=== PATIENT | female | born 1990 | race Caucasian/White ===

== ENCOUNTER 2019-02-01 10:03 | Day surgery (SDC) | payer MEDICAID, OTHER ==
[~2019-02-01] VITALS: Ht 160 cm; Wt 133.0 kg
[2019-02-01] VITALS (11 sets, daily range): BP systolic 114–183; BP diastolic 61–129; PULSE 80–102; RESP 15–18; Ht 160 cm; Wt 133.0 kg
[~2019-02-01 10:03] MED LIST: CEFAZOLIN 2 GM/50 ML (PMX) 50 ML IVPB ONE; SOD CHLORIDE 0.9% 1,000 ML IV ONE; VIC PO
[2019-02-01] MEDS ORDERED: DIPHENHYDRAMINE 50 MG INJ IV PRN (12:30)
[2019-02-01] MEDS ORDERED: hydrALAzine 20 MG INJ IV PRN (12:30)
[2019-02-01] MEDS ORDERED: OXYCODONE/ACETAMINOPHEN (5/325) TAB PO PRN (12:30)
[2019-02-01] MEDS ORDERED: MEPERIDINE 25 MG INJ IV PRN (12:30)
[2019-02-01] MEDS ORDERED: EPHEDrine 25 MG/5 ML SYG IV PRN (12:30)
[2019-02-01] MEDS ORDERED: HYDROmorphONE 1 MG/5 ML IV SYRINGE IV PRN ×3 (12:30)
[2019-02-01] MEDS ORDERED: FENTAnyl 50 MCG/ML VIAL IV PRN ×3 (12:30)
[2019-02-01] MEDS ORDERED: METOCLOPRAMIDE 10 MG INJ IV PRN (12:30)
[2019-02-01] MEDS ORDERED: LABETALOL HCL 20MG INJ IV PRN (12:30)
[2019-02-01] MEDS ORDERED: ONDANSETRON 4 MG INJ IV PRN (12:30)
[2019-02-01] MEDS ORDERED: PROPOFOL 40 ML ONE (12:48)
[2019-02-01] MEDS ORDERED: CEFAZOLIN 1 GM INJ ONE (12:48)
[2019-02-01] MEDS ORDERED: DESFLURANE 15 MIN ONE (12:48)
[2019-02-01] MEDS ORDERED: ROCURONIUM 50 MG INJ ONE (12:48)
[2019-02-01] MEDS ORDERED: FENTAnyl 50 MCG/ML VIAL ONE ×2 (12:49→13:30)
[2019-02-01] MEDS ORDERED: MIDAZOLAM 1 MG/ML 2 ML INJ ONE ×2 (12:49→13:38)
[2019-02-01] MEDS ORDERED: ROPIVACAINE 0.2% 20 ML VIAL ONE (12:49)
[2019-02-01] MEDS ORDERED: ROPIVACAINE 0.5 % 30 ML VIAL ONE (12:49)
[2019-02-01] MEDS ORDERED: BUPIVACAINE 0.5% (SDV) 30 ML INJ ONE (13:52)
[2019-02-01] MEDS ORDERED: DEXAMETHASONE 4 MG/ML 5 ML INJ ONE (14:00)
[2019-02-01] MEDS ORDERED: HYDROCODONE/APAP (5/325) TAB PO ONE (14:00)
[2019-02-01] MEDS ORDERED: METOCLOPRAMIDE 10 MG INJ ONE (14:00)
[2019-02-01] MEDS ORDERED: ONDANSETRON 4 MG INJ ONE (14:00)
[2019-02-01] MEDS ORDERED: KETOROLAC 30 MG INJ ONE (14:01)
[2019-02-01] MEDS ORDERED: SUGAMMADEX SODIUM 200 MG/2 ML VIAL IV ONE (14:01)
== END 2019-02-01 15:41 | disposition home or self-care (01) ==
LOC: SDS 10:03
PROVIDERS: ATTEND Surgery
DX: K80.10 Calculus of gallbladder with chronic cholecystitis without obstruction (principal); J45.909 Unspecified asthma, uncomplicated; E66.01 Morbid (severe) obesity due to excess calories; Z68.43 Body mass index [BMI] 50.0-59.9, adult
CPT/HCPCS: 47562; 88304; J0360; J0690; J1100; J1885; J2175; J2250; J2405; J2765; J2795; J3010; Z7512; Z7610